=== PATIENT | male | born 1990 | race Caucasian/White ===

== ENCOUNTER 2020-09-03 22:39 | Emergency (ER) | payer MEDICAID ==
[~2020-09-03] VITALS: Ht 172.7 cm; Wt 77.1 kg
[2020-09-03 22:40] VITALS: BP_SYST 128
[2020-09-03] MEDS ORDERED: CEFAZOLIN 1 GM IVPB PREMIX 50 ML IV ONE (22:45)
[2020-09-03] MEDS ORDERED: DIPH-TET-PERTUS Vaccine 0.5 ML VIAL (ADACEL) I.M. ONE (22:45)
[2020-09-03] MEDS ORDERED: KETOROLAC TROMETHAMINE 30 MG VIAL IVP ONE (22:45)
[2020-09-03] MEDS ORDERED: BACITRACIN ZINC 15 GM TOPICAL OINTMENT TP ONE (23:30)
[2020-09-03] MEDS ORDERED: BACITRACIN OPHTHALMIC OINT.3.5 GM OP ONE (23:30)
[2020-09-03 23:45] VITALS: BP_SYST 128
== END 2020-09-03 23:45 | disposition home or self-care (01) ==
LOC: SED 22:39
DX: S71.132A Puncture wound without foreign body, left thigh, initial encounter (principal); W34.09XA Accidental discharge from other specified firearms, initial encounter; Y93.E9 Activity, other interior property and clothing maintenance; Y92.098 Other place in other non-institutional residence as the place of occurrence of the external cause; Y99.8 Other external cause status
CPT/HCPCS: 36415; 73552; 87040; 90471; 90715; 96365; 96375; 99284; J0690; J1885